=== PATIENT | female | born 1955 | race Caucasian/White ===

== ENCOUNTER 2019-02-16 15:56 | Emergency (ER) | payer MEDICARE, MEDICAID, OTHER ==
[~2019-02-16] VITALS: Ht 165.1 cm; Wt 70.0 kg
[~2019-02-16 15:56] MED LIST: ADV50500 INH; ALBU18HF2 IH; ALBU2.5V12 NEB; BENZ-16 PO; CYCL-1 PO; GUAI473S11 PO; HYDR-4383 PO; IBUP-1984 PO; MECL-111 PO; METH4TAB81 PO; NAPR-1144 PO; ONDA4TAB6 PO; ZAFI10TA5 PO
[2019-02-16] MEDS ORDERED: LIDOcaine 5% patch TP STA (16:21)
[2019-02-16] MEDS ORDERED: LIDO700A32 TOP (16:23)
[2019-02-16 17:00] VITALS: BP 138/80
== END 2019-02-16 16:50 | disposition home or self-care (01) ==
LOC: ER 15:57
DX: S16.1XXA Strain of muscle, fascia and tendon at neck level, initial encounter (principal); M54.5 Low back pain; J45.909 Unspecified asthma, uncomplicated; Z88.2 Allergy status to sulfonamides; Z88.8 Allergy status to other drugs, medicaments and biological substances; Z79.899 Other long term (current) drug therapy; Z90.710 Acquired absence of both cervix and uterus; Z98.890 Other specified postprocedural states; Z56.0 Unemployment, unspecified; V43.92XA Unspecified car occupant injured in collision with other type car in traffic accident, initial encounter; Y93.89 Activity, other specified; Y92.488 Other paved roadways as the place of occurrence of the external cause; Y99.8 Other external cause status
CPT/HCPCS: 99282

== ENCOUNTER 2019-02-26 09:26 | Emergency (ER) | payer MEDICARE, MEDICAID, OTHER ==
[~2019-02-26] VITALS: Ht 165.1 cm; Wt 63.6 kg
[~2019-02-26 09:26] MED LIST changes: +LIDO700A32 TOP
[2019-02-26 09:36] VITALS: BP 157/87
[2019-02-26] MEDS ORDERED: proparacaine 0.5% ophthalmic drops 15ml EACHEYE ONE (09:45)
[2019-02-26] MEDS ORDERED: erythromycin ophthalmic ointment 1gm tube LEFTEYE ONE (10:25)
[2019-02-26] MEDS ORDERED: acetaminophen 325mg tablet PO ONE (10:35)
== END 2019-02-26 11:50 | disposition home or self-care (01) ==
LOC: ER 09:26
DX: H20.9 Unspecified iridocyclitis (principal); J45.909 Unspecified asthma, uncomplicated; Z88.2 Allergy status to sulfonamides; Z88.8 Allergy status to other drugs, medicaments and biological substances; Z79.899 Other long term (current) drug therapy; Z79.1 Long term (current) use of non-steroidal anti-inflammatories (NSAID); Z56.0 Unemployment, unspecified; Z98.42 Cataract extraction status, left eye; Z90.710 Acquired absence of both cervix and uterus; Z98.890 Other specified postprocedural states; W55.09XA Other contact with cat, initial encounter; Y93.89 Activity, other specified; Y92.89 Other specified places as the place of occurrence of the external cause; Y99.8 Other external cause status
CPT/HCPCS: 99283

== ENCOUNTER 2019-09-23 13:48 | Emergency (ER) | payer MEDICARE, MEDICAID ==
[~2019-09-23] VITALS: Ht 165.1 cm; Wt 68.0 kg
[~2019-09-23 13:48] MED LIST changes: -MECL-111 PO; +MECL-159 PO
[2019-09-23 14:09] VITALS: BP 144/83
[2019-09-23] MEDS ORDERED: GABA-532 PO (16:20)
[2019-09-23] MEDS ORDERED: VALA100031 PO (16:20)
[2019-09-23] MEDS ORDERED: HYDR-3965 PO (16:20)
== END 2019-09-23 16:37 | disposition home or self-care (01) ==
LOC: ER 13:48
DX: B02.9 Zoster without complications (principal); L98.8 Other specified disorders of the skin and subcutaneous tissue; J45.909 Unspecified asthma, uncomplicated; Z98.890 Other specified postprocedural states; Z90.710 Acquired absence of both cervix and uterus; Z88.2 Allergy status to sulfonamides; Z88.6 Allergy status to analgesic agent; Z79.899 Other long term (current) drug therapy; Z87.442 Personal history of urinary calculi
CPT/HCPCS: 99283

== ENCOUNTER 2019-11-19 18:00 | Emergency (ER) | payer MEDICARE, MEDICAID ==
[~2019-11-19] VITALS: Ht 165.1 cm; Wt 75.0 kg
[~2019-11-19 18:00] MED LIST changes: +GABA-532 PO; +VALA100031 PO
[2019-11-19 18:42] LABS: BASOPHILS # (AUTO) 0.1 X10'3 (0-0.2); BASOPHILS % (AUTO) 0.9 % (0-1); EOSINOPHILS # (AUTO) 0.1 X10'3 (0-0.9); EOSINOPHILS % (AUTO) 0.5 % (0-6); HEMATOCRIT 40.7 % (35.0-45.0); HEMOGLOBIN 13.8 g/dl (12.0-16.0); LYMPHOCYTES # (AUTO) 1.9 X10'3 (1.1-4.8); LYMPHOCYTES % (AUTO) 13.3 % (21-51); MEAN CORPUSCULAR HEMOGLOBIN 31.8 PG (27.0-31.0); MEAN CORPUSCULAR HGB CONC 33.9 g/dL (33.0-36.5); MEAN PLATELET VOLUME 8.6 FL (7.4-10.4); MONOCYTES # (AUTO) 0.7 X10'3 (0-0.9); NEUTROPHILS # (AUTO) 11.5 X10'3 (1.8-7.7); NEUTROPHILS % (AUTO) 80.3 % (42-75); PLATELET COUNT 265 X10'3 (140-440); RED BLOOD COUNT 4.32 X10'6 (4.20-5.60); RED CELL DISTRIBUTION WIDTH 12.6 % (11.5-14.5); WHITE BLOOD COUNT 14.4 X10'3 (4.5-11.0)
[2019-11-19 18:43] LABS: CLARITY,URINE SLIGHTLY CLOUDY (Clear); COLOR,URINE YELLOW (Yellow); GLUCOSE, URINE NEGATIVE (Neg); KETONES,URINE NEGATIVE (Neg); LEUKOCYTE ESTERASE ,URINE LARGE (Neg); NITRITES, URINE NEGATIVE (Neg); OCCULT BLOOD,URINE MODERATE (Neg); PROTEIN,URINE TRACE mg/dl (Neg); UROBILINOGEN,URINE 0.2 E.U/dL (0.2-1.0)
[2019-11-19 18:46] LABS: ALANINE AMINOTRANSFERASE 20 U/L (12-78); ALBUMIN 3.8 G/DL (3.4-5.0); ALKALINE PHOSPHATASE 110 IU/L (46-116); ANION GAP 9 (8-16); ASPARTATE AMINO TRANSFERASE 21 U/L (10-37); BILIRUBIN,TOTAL 0.9 MG/DL (0.1-1.0); BLOOD UREA NITROGEN 16 MG/DL (7-18); CALCIUM 9.1 MG/DL (8.5-10.1); CHLORIDE 99 MMOL/L (99-107); CREATININE 1.07 MG/DL (0.40-0.90); GLUCOSE 127 MG/DL (70-104); POTASSIUM 3.9 MMOL/L (3.5-5.1); SODIUM 133 MMOL/L (135-145); TOTAL CARBON DIOXIDE 24.6 MMOL/L (24-32); TOTAL PROTEIN 7.6 G/DL (6.4-8.2); eGFR 52 ML/MIN
[2019-11-19 18:48] LABS: UA COLLECTION TYPE CLN CATCH MIDSTREAM
[2019-11-19 18:49] LABS: BACTERIA,URINE FEW /HPF (Neg); RBC,URINE 0-2 /HPF (0-2); SQUAMOUS EPITHELIAL CELL,UR FEW /LPF (FEW); WBC CLUMPS,URINE FEW /HPF (NEGATIVE); WBC,URINE 30-50 /HPF (0-4)
[2019-11-19] MEDS ORDERED: normal saline 1000ML IV soln IV ONE (19:05)
[2019-11-19] MEDS ORDERED: CefTRIAXone/D5W-Rocephin 1gm 50 ML IV ONE (19:20)
[2019-11-19] MEDS ORDERED: CEPH500C5 PO (20:47)
[2019-11-19 20:57] VITALS: BP 115/70
== END 2019-11-19 20:59 | disposition home or self-care (01) ==
LOC: ER 18:00
DX: N12 Tubulo-interstitial nephritis, not specified as acute or chronic (principal); J45.909 Unspecified asthma, uncomplicated; R10.9 Unspecified abdominal pain; Z87.59 Personal history of other complications of pregnancy, childbirth and the puerperium; Z90.710 Acquired absence of both cervix and uterus; Z98.890 Other specified postprocedural states; Z72.89 Other problems related to lifestyle; Z88.2 Allergy status to sulfonamides; Z91.041 Radiographic dye allergy status; Z88.8 Allergy status to other drugs, medicaments and biological substances; Z79.899 Other long term (current) drug therapy
CPT/HCPCS: 36415; 80053; 81001; 83605; 84145; 85025; 87040; 87088; 87186; 93005; 96365; 99284; J0696; J7030; 87077

== ENCOUNTER 2021-11-20 10:50 | Observation (INO) | payer MEDICARE, MEDICAID ==
[~2021-11-20] VITALS: Ht 165.1 cm; Wt 67.7 kg
[2021-11-20] VITALS (7 sets, daily range): BP systolic 106–123; BP diastolic 64–97
[2021-11-20 11:35] LABS: BASOPHILS # (AUTO) 0.1 X10'3 (0-0.2); BASOPHILS % (AUTO) 0.5 % (0-1); EOSINOPHILS # (AUTO) 0.7 X10'3 (0-0.9); EOSINOPHILS % (AUTO) 5.5 % (0-6); HEMOGLOBIN 13.5 g/dl (12.0-16.0); LYMPHOCYTES # (AUTO) 3.8 X10'3 (1.1-4.8); LYMPHOCYTES % (AUTO) 28.8 % (21-51); MEAN CORPUSCULAR HEMOGLOBIN 30.4 PG (27.0-31.0); MEAN CORPUSCULAR HGB CONC 32.9 g/dL (33.0-36.5); MEAN CORPUSCULAR VOLUME 92.5 FL (78-98); MEAN PLATELET VOLUME 9.1 FL (7.4-10.4); MONOCYTES # (AUTO) 1.1 X10'3 (0-0.9); MONOCYTES % (AUTO) 8.3 % (2-12); NEUTROPHILS # (AUTO) 7.4 X10'3 (1.8-7.7); NEUTROPHILS % (AUTO) 56.9 % (42-75); PLATELET COUNT 350 X10'3 (140-440); RED BLOOD COUNT 4.43 X10'6 (4.20-5.60); RED CELL DISTRIBUTION WIDTH 12.8 % (11.5-14.5); WHITE BLOOD COUNT 13.1 X10'3 (4.5-11.0)
[2021-11-20 11:51] LABS: ALANINE AMINOTRANSFERASE 18 U/L (12-78); ALBUMIN 3.6 G/DL (3.4-5.0); ALBUMIN/GLOBULIN RATIO 0.9 (1.1-1.5); ALKALINE PHOSPHATASE 71 IU/L (46-116); ANION GAP 7 (8-16); ASPARTATE AMINO TRANSFERASE 10 U/L (10-37); BILIRUBIN,TOTAL 0.7 MG/DL (0.1-1.0); BLOOD UREA NITROGEN 23 MG/DL (7-18); CALCIUM 8.8 MG/DL (8.5-10.1); CHLORIDE 104 MMOL/L (99-107); CREATININE 0.92 MG/DL (0.40-0.90); GLUCOSE 118 MG/DL (70-104); POTASSIUM 4.2 MMOL/L (3.5-5.1); SODIUM 140 MMOL/L (135-145); TOTAL CARBON DIOXIDE 29.1 MMOL/L (24-32); TOTAL PROTEIN 7.4 G/DL (6.4-8.2); eGFR 61 ML/MIN
[2021-11-20] MEDS ORDERED: LIDOcaine Viscous 15ml cup MM ONE (12:50)
[2021-11-20] MEDS ORDERED: mag hydrox/Alum hydrox/simeth 30ml oral suspension PO ONE (12:50)
[2021-11-20] MEDS ORDERED: SUCR1TAB PO ×2 (14:12)
[2021-11-20] MEDS ORDERED: ondansetron/PF 4mg/2ml inj IV ONE (15:30)
[2021-11-20] MEDS: morphine 4 MG/ML inj SYRINge IV PRN ×2 (15:37→16:22)
[2021-11-20] MEDS ORDERED: TIOT4MIS2 PO (16:50)
[2021-11-20] MEDS ORDERED: BUDE10.2 PO (16:50)
[2021-11-20] MEDS ORDERED: ALBU18HF2 PO (16:50)
[2021-11-20] MEDS ORDERED: MONT-40 PO (16:50)
[2021-11-20] MEDS ORDERED: OMEP20CA16 PO (16:50)
[2021-11-20] MEDS ORDERED: POTASSIUM BICARB 20meq eff tab 20 MEQ TABLET.EFF PO PRN ×2 (17:30)
[2021-11-20] MEDS ORDERED: magnesium 2GM in 50ml NS 50 ML IV PRN (17:30)
[2021-11-20] MEDS ORDERED: mag hydrox/Alum hydrox/simeth 30ml oral suspension PO PRN (17:30)
[2021-11-20] MEDS ORDERED: PERFLUTREN PROTEIN-A MICROSPHR (Optison) 0.22 MG/ML 3ML VIAL IV ONE (17:30)
[2021-11-20] MEDS ORDERED: magnesium 4gm in 100ml NS 100 ML IV PRN (17:30)
[2021-11-20] MEDS ORDERED: HYDROcodone/acetaminophen 5mg/325mg tablet PO PRN (17:30)
[2021-11-20] MEDS ORDERED: normal saline 1000ml 1,000 ML IV SCH (17:30)
[2021-11-20] MEDS ORDERED: potassium CL 10mEq/100ml bag 100 ML IV PRN (17:30)
[2021-11-20] MEDS ORDERED: morphine 2 MG/ML inj. syringe IV PRN ×2 (17:30)
[2021-11-20] MEDS ORDERED: acetaminophen 650mg rectal suppository RC PRN (17:30)
[2021-11-20] MEDS: pantoprazole 40mg Tablet.DR PO SCH (17:30)
[2021-11-20] MEDS ORDERED: bisacodyl 10mg suppository rectal RC PRN (17:30)
[2021-11-20] MEDS ORDERED: magnesium hydroxide 30ml (MOM) UD suspension PO PRN (17:30)
[2021-11-20] MEDS ORDERED: ondansetron 4mg rapidly disintigrating tab PO PRN (17:30)
[2021-11-20] MEDS ORDERED: metoclopramide 5 mg/ml inj IV PRN (17:30)
[2021-11-20] MEDS ORDERED: ondansetron/PF 4mg/2ml inj IV PRN (17:30)
[2021-11-20] MEDS ORDERED: HYDROcodone/acetaminophen 10/325mg tab PO PRN (17:30)
[2021-11-20] MEDS ORDERED: magnesium Cl slow-release 64mg tablet PO PRN (17:30)
[2021-11-20] MEDS ORDERED: acetaminophen 325mg tablet PO PRN ×2 (17:30)
[2021-11-20] MEDS ORDERED: ipratropium 0.5 MG/2.5ML nebule IH SCH (17:50)
[2021-11-20] MEDS ORDERED: albuterol 2.5 MG/3 ML nebule NEB PRN (17:50)
[2021-11-20 17:58] LABS: HEMOGLOBIN A1C 5.7 % (4.5-6.2)
--- NOTE | 2021-11-20 18:49 | NUR ---
Pt in GI Lab. Eco will return tomorrow since pt unavailible.
[2021-11-20] MEDS ORDERED: MIDAZolam 1 MG/ML 5ML VIAL ONE (18:55)
[2021-11-20] MEDS ORDERED: fentaNYL/PF 50MCG/1 ML 2ML syringe ONE (18:55)
[2021-11-20] MEDS ORDERED: LIDOcaine Viscous 15ml cup ONE (18:55)
[2021-11-20 19:41] LABS: LIPASE 230 U/L (73-393)
[2021-11-20] MEDS ORDERED: K and/or MAG REPLACEMENT MC SCH (20:00)
--- NOTE | 2021-11-20 20:19 | NUR ---
I received report from GI lab from the nurse who was able to tell me about the EGD, but not able to tell me any history so I called ER and was given report from Gautam ASTUDILLO about her ER stay. I will give report to Henny ASTUDILLO.
--- NOTE | 2021-11-20 20:30 | NUR ---
Patient arrived to our floor via gurney with the GI nurse at her bedside. She ambulated into room 4011B without difficulty and I brought her clear liquids to try at this time since I was told she can have a clear liquid diet per Monika ASTUDILLO from GI lab.
--- NOTE | 2021-11-20 20:42 | NUR ---
Gave report to Henny ASTUDILLO
[2021-11-20] MEDS: albuterol 2.5 MG/3 ML nebule NEB SCH (21:00)
[2021-11-20] MEDS: budesonide 0.5mg/2ml UD nebule IH SCH (21:00)
[2021-11-20] MEDS ORDERED: temazepam 15mg capsule PO PRN (21:00)
[2021-11-20 21:15] LABS: APTT 26 SECONDS (22-32)
[2021-11-20] MEDS: docusate sod 100mg capsule PO SCH (21:28)
[2021-11-20] MEDS: heparin, porcine 5000 units/ml vial SQ SCH (21:32)
[2021-11-21] MEDS: albuterol 2.5 MG/3 ML nebule NEB SCH ×2 (02:49→09:00)
[2021-11-21 06:00] VITALS: BP 107/61
--- NOTE | 2021-11-21 06:35 | NUR ---
Problems reprioritized. Patient report given, questions answered & plan of care reviewed with Jem ASTUDILLO.
[2021-11-21 06:59] LABS: HEMATOCRIT 34.5 % (35.0-45.0); HEMOGLOBIN 11.6 g/dl (12.0-16.0); MEAN CORPUSCULAR HEMOGLOBIN 31.5 PG (27.0-31.0); MEAN CORPUSCULAR HGB CONC 33.5 g/dL (33.0-36.5); MEAN CORPUSCULAR VOLUME 93.9 FL (78-98); MEAN PLATELET VOLUME 9.3 FL (7.4-10.4); PLATELET COUNT 307 X10'3 (140-440); RED BLOOD COUNT 3.68 X10'6 (4.20-5.60); RED CELL DISTRIBUTION WIDTH 12.5 % (11.5-14.5); WHITE BLOOD COUNT 9.4 X10'3 (4.5-11.0)
[2021-11-21] MEDS: pantoprazole 40mg Tablet.DR PO SCH (07:34)
[2021-11-21] MEDS: docusate sod 100mg capsule PO SCH (07:34)
[2021-11-21] MEDS: heparin, porcine 5000 units/ml vial SQ SCH (07:35)
[2021-11-21] MEDS ORDERED: montelukast 10mg tablet PO SCH (08:00)
[2021-11-21] MEDS ORDERED: aspirin 81mg, enteric-coated 1 TAB TABLET.DR PO SCH (08:00)
[2021-11-21 08:15] LABS: ALBUMIN 2.9 G/DL (3.4-5.0); ANION GAP 8 (8-16); BLOOD UREA NITROGEN 20 MG/DL (7-18); BUN/CREATININE RATIO 22.5 (6.6-38.0); CALCIUM 8.1 MG/DL (8.5-10.1); CHLORIDE 108 MMOL/L (99-107); CHOL/HDL RATIO 2.6 (0.00-4.99); CHOLESTEROL 178 MG/DL (0-200); CREATININE 0.89 MG/DL (0.40-0.90); GLUCOSE 91 MG/DL (70-104); HDL CHOLESTEROL 68 MG/DL (35-60); LDL CHOLESTEROL 95 MG/DL (50-100); MAGNESIUM 1.9 MG/DL (1.5-2.4); POTASSIUM 4.3 MMOL/L (3.5-5.1); SODIUM 142 MMOL/L (135-145); TOTAL CARBON DIOXIDE 26.5 MMOL/L (24-32); TRIGLYCERIDES 86 MG/DL (20-135); eGFR 63 ML/MIN
[2021-11-21] MEDS: budesonide 0.5mg/2ml UD nebule IH SCH (09:08)
[2021-11-21] MEDS ORDERED: PANT40TA54 PO (09:27)
--- NOTE | 2021-11-21 09:38 | NUR ---
Per Dr. Chong, we do not need to wait for lunch time with the full liquid diet before sending this patient home and that we can give the patient liquid diet now
--- NOTE | 2021-11-21 09:46 | NUR ---
Yogurt given to patient to try if her stomach will tolerate full liquid. She refused milk.
--- NOTE | 2021-11-21 10:43 | NUR ---
Patient tolerated the yogurt I gave her, no issues. Discharged patient home accompanied by her . Discharge instructions were given to patient with the present at bedside. Patient verbalized understanding of all instructions given to her. Peripheral IV catheter removed, tip intact. Instructed patient to ensure they have all the belongings with them before leaving the hospital. Addendum: 11/21/21 at 1046 by Jem Bright RN Patient refused to be transported via wheelchair upon discharge. Patient was escorted up to the elevator, she was with her .
== END 2021-11-21 10:40 | disposition home or self-care (01) ==
LOC: ER 10:50 → INTOOBSV 17:31 → ED HOLD 17:31 → ORTHO 4S 20:31
PROVIDERS: ADMIT Family Medicine; ATTEND Family Medicine
DX: K20.90 Esophagitis, unspecified without bleeding (principal); K29.70 Gastritis, unspecified, without bleeding; R07.89 Other chest pain; D72.829 Elevated white blood cell count, unspecified; J45.909 Unspecified asthma, uncomplicated; R10.9 Unspecified abdominal pain; N17.0 Acute kidney failure with tubular necrosis; K44.9 Diaphragmatic hernia without obstruction or gangrene; K22.2 Esophageal obstruction; K57.30 Diverticulosis of large intestine without perforation or abscess without bleeding; K76.89 Other specified diseases of liver; I20.9 Angina pectoris, unspecified; Z90.710 Acquired absence of both cervix and uterus; Z79.899 Other long term (current) drug therapy; Z98.82 Breast implant status
CPT/HCPCS: 36415; 43239; 71045; 74176; 76700; 80048; 80053; 80061; 83036; 83690; 83735; 83880; 84145; 84484; 85025; 85027; 85610; 85730; 87081; 93005; 93306; 94640; 94760; 96361; 96372; 96374; 96375; 96376; 99285; G0378; J1644; J2250; J2270; J2405; J3010; J7030; 84132; 88305; 88342; 99152; A4620

== ENCOUNTER 2023-07-18 13:19 | Emergency (ER) | payer MEDICARE, MEDICAID ==
[~2023-07-18] VITALS: Ht 165.1 cm; Wt 69.0 kg
[~2023-07-18 13:19] MED LIST changes: -ADV50500 INH; -ALBU18HF2 IH; +ALBU18HF2 PO; -ALBU2.5V12 NEB; -BENZ-16 PO; +BUDE10.2 PO; -CYCL-1 PO; -GABA-532 PO; -GUAI473S11 PO; -HYDR-4383 PO; -IBUP-1984 PO; -LIDO700A32 TOP; -MECL-159 PO; -METH4TAB81 PO; +MONT-40 PO; -NAPR-1144 PO; -ONDA4TAB6 PO; +PANT40TA54 PO; +TIOT4MIS2 PO; -VALA100031 PO; -ZAFI10TA5 PO
[2023-07-18 14:20] LABS: BASOPHILS # (AUTO) 0.1 X10'3 (0-0.2); BASOPHILS % (AUTO) 0.7 % (0-1); EOSINOPHILS # (AUTO) 0.4 X10'3 (0-0.9); EOSINOPHILS % (AUTO) 4.8 % (0-6); HEMATOCRIT 38.4 % (35.0-45.0); HEMOGLOBIN 12.8 g/dl (12.0-16.0); LYMPHOCYTES # (AUTO) 2.8 X10'3 (1.1-4.8); LYMPHOCYTES % (AUTO) 32.5 % (21-51); MEAN CORPUSCULAR HEMOGLOBIN 30.8 PG (27.0-31.0); MEAN CORPUSCULAR HGB CONC 33.4 g/dL (33.0-36.5); MEAN CORPUSCULAR VOLUME 92.2 FL (78-98); MEAN PLATELET VOLUME 8.3 FL (7.4-10.4); MONOCYTES # (AUTO) 0.7 X10'3 (0-0.9); MONOCYTES % (AUTO) 7.6 % (2-12); NEUTROPHILS # (AUTO) 4.7 X10'3 (1.8-7.7); NEUTROPHILS % (AUTO) 54.4 % (42-75); PLATELET COUNT 317 X10'3 (140-440); RED BLOOD COUNT 4.17 X10'6 (4.20-5.60); RED CELL DISTRIBUTION WIDTH 12.4 % (11.5-14.5); WHITE BLOOD COUNT 8.7 X10'3 (4.5-11.0)
[2023-07-18 14:33] LABS: ALANINE AMINOTRANSFERASE 43 U/L (12-78); ALBUMIN 3.5 G/DL (3.4-5.0); ALBUMIN/GLOBULIN RATIO 0.9 (1.1-1.5); ALKALINE PHOSPHATASE 83 IU/L (46-116); ANION GAP 9 (8-16); ASPARTATE AMINO TRANSFERASE 28 U/L (10-37); BILIRUBIN,TOTAL 0.3 MG/DL (0.1-1.0); BLOOD UREA NITROGEN 13 MG/DL (7-18); BUN/CREATININE RATIO 17.3 (10.0-20.0); CALCIUM 8.9 MG/DL (8.5-10.1); CHLORIDE 98 MMOL/L (99-107); CREATININE 0.75 MG/DL (0.40-0.90); GLUCOSE 111 MG/DL (70-104); POTASSIUM 3.9 MMOL/L (3.5-5.1); SODIUM 133 MMOL/L (135-145); TOTAL CARBON DIOXIDE 25.7 MMOL/L (24-32); TOTAL PROTEIN 7.3 G/DL (6.4-8.2); eCRCL 65 ML/MIN; eGFR 77 ML/MIN
[2023-07-18 14:40] LABS: PRO BRAIN NATRIURETIC PEPTIDE 62 PG/ML (0-125)
[2023-07-18] MEDS ORDERED: CEFD300C3 PO (14:54)
[2023-07-18 15:06] VITALS: BP 140/83; PULSE 73; RESP 16; TEMP 98.6; O2SAT 97
== END 2023-07-18 15:11 | disposition home or self-care (01) ==
LOC: ER 13:20
DX: J20.9 Acute bronchitis, unspecified (principal); J45.909 Unspecified asthma, uncomplicated; Z88.2 Allergy status to sulfonamides; Z88.5 Allergy status to narcotic agent
CPT/HCPCS: 36415; 71046; 80053; 83605; 83880; 85025; 87040; 99283; 99284

== ENCOUNTER 2024-08-29 08:39 | Emergency (ER) | payer MEDICARE, MEDICAID ==
[~2024-08-29] VITALS: Ht 165.1 cm; Wt 63.6 kg
[2024-08-29] MEDS: albuterol 2.5 MG/3 ML nebule CONTNEB STA (08:55)
[2024-08-29] MEDS: ipratropium 0.5 MG/2.5ML nebule IH ONE (08:55)
[2024-08-29 08:59] VITALS: PULSE 92; RESP 16
[2024-08-29] MEDS: dexamethasone sod phosphate 10mg/ml inj IV STA (09:01)
[2024-08-29 09:27] LABS: BASOPHILS % (AUTO) 0.6 % (0-1); EOSINOPHILS # (AUTO) 0.1 X10'3 (0-0.9); EOSINOPHILS % (AUTO) 1.5 % (0-6); HEMATOCRIT 36.6 % (35.0-45.0); HEMOGLOBIN 12.3 g/dl (12.0-16.0); LYMPHOCYTES # (AUTO) 2.5 X10'3 (1.1-4.8); LYMPHOCYTES % (AUTO) 46.6 % (21-51); MEAN CORPUSCULAR HEMOGLOBIN 31.1 PG (27.0-31.0); MEAN CORPUSCULAR HGB CONC 33.6 g/dL (33.0-36.5); MEAN CORPUSCULAR VOLUME 92.3 FL (78-98); MEAN PLATELET VOLUME 8.1 FL (7.4-10.4); MONOCYTES # (AUTO) 0.8 X10'3 (0-0.9); MONOCYTES % (AUTO) 13.7 % (2-12); NEUTROPHILS # (AUTO) 2.1 X10'3 (1.8-7.7); NEUTROPHILS % (AUTO) 37.6 % (42-75); PLATELET COUNT 258 X10'3 (140-440); RED BLOOD COUNT 3.96 X10'6 (4.20-5.60); RED CELL DISTRIBUTION WIDTH 12.8 % (11.5-14.5); WHITE BLOOD COUNT 5.5 X10'3 (4.5-11.0)
[2024-08-29 09:45] VITALS: PULSE 92; RESP 14
[2024-08-29 09:46] LABS: ALBUMIN 3.6 G/DL (3.4-5.0); ANION GAP 10 (8-16); BLOOD UREA NITROGEN 8 MG/DL (7-18); BUN/CREATININE RATIO 10.8 (10.0-20.0); CALCIUM 8.6 MG/DL (8.5-10.1); CHLORIDE 99 MMOL/L (99-107); CREATININE 0.74 MG/DL (0.40-0.90); GLUCOSE 122 MG/DL (70-104); POTASSIUM 3.7 MMOL/L (3.5-5.1); PRO BRAIN NATRIURETIC PEPTIDE 53 PG/ML (0-125); SODIUM 131 MMOL/L (135-145); TOTAL CARBON DIOXIDE 22.3 MMOL/L (24-32); eCRCL 65 ML/MIN; eGFR 78 ML/MIN
[2024-08-29 10:06] VITALS: PULSE 97; RESP 14; O2SAT 97
[2024-08-29] MEDS ORDERED: PRED10TA23 PO (11:09)
[2024-08-29] MEDS ORDERED: BENZ-38 PO (11:09)
[2024-08-29 11:12] VITALS: BP 116/61; PULSE 86; RESP 16; TEMP 98.1; O2SAT 97
== END 2024-08-29 11:32 | disposition home or self-care (01) ==
LOC: ER 08:39
DX: J45.901 Unspecified asthma with (acute) exacerbation (principal); Z88.2 Allergy status to sulfonamides; Z91.041 Radiographic dye allergy status; Z88.8 Allergy status to other drugs, medicaments and biological substances; Z90.710 Acquired absence of both cervix and uterus; Z98.890 Other specified postprocedural states; Z20.822 Contact with and (suspected) exposure to COVID-19
CPT/HCPCS: 36415; 71045; 80048; 83735; 83880; 84145; 84484; 85025; 87502; 87503; 87811; 93005; 94644; 96374; 99285; A7015; J1100; Z7610; 94640; 94760

== ENCOUNTER 2025-03-29 11:31 | Outpatient (CLI) | payer MEDICARE, MEDICAID ==
[~2025-03-29 11:31] MED LIST changes: +BENZ-38 PO; +PRED10TA23 PO
--- NOTE | 2025-03-29 15:45 | RADIOLOGY REPORT ---
EXAM: CT CT CHEST INDICATION: PERSISTENT SHORTNESS OF BREATH TECHNIQUE: Noncontrast axial images of the chest have been obtained along with coronal and sagittal reformatted images. All CT scans at this facility use dose modulation, iterative reconstruction, and/or weight based dosing when appropriate to reduce radiation dose to as low as reasonably achievable. COMPARISON: DI CHEST,SINGLE VIEW on DOS: 08/29/24 FINDINGS: LOWER NECK: Unremarkable LYMPH NODES/MEDIASTINUM: No abnormal lymph nodes by CT size criteria CARDIOVASCULAR: Normal cardiac size. No pericardial effusion. No aneurysmal dilatation of the great vessels. Coronary artery calcifications. UPPER ABDOMEN: Trace possible sliding hiatal hernia. MUSCULOSKELETAL: No acute fracture or aggressive focal osseous lesion. Multilevel degenerative change of the visualized spine. CHEST WALL: Unremarkable. LUNG PARENCHYMA/PLEURAL SPACE: No pleural effusion or pneumothorax. No consolidation, suspicious focal airspace opacity, or suspicious nodules. Inconspicuous atelectasis and/or scarring in bilateral lung bases IMPRESSION: 1. No CT evidence of an acute intrathoracic process.
== END 2025-03-29 23:59 | disposition home or self-care (01) ==
LOC: RAD 11:31
PROVIDERS: ATTEND Internal Medicine
DX: J45.901 Unspecified asthma with (acute) exacerbation (principal)
CPT/HCPCS: 71250